=== PATIENT | female | born 1975 | race Caucasian/White ===

== ENCOUNTER 2017-06-04 11:38 | Emergency (ER) | payer MEDICAID ==
[2017-06-04 11:53] VITALS: BMI 30.9
[2017-06-04 11:54] VITALS: BP 107/73; PULSE 90; RESP 18; TEMP 98.2; O2SAT 99
[2017-06-04] MEDS ORDERED: Lidocaine 5% Patch TD STA (12:01)
[2017-06-04] MEDS ORDERED: Lidocaine 5% Patch TD ONE (12:06)
--- NOTE | 2017-06-04 12:18 | C.PDOC ---
History Of Present Illness 41 y/o female with Hx of asthma and anemia presents to ED with complaints of right lower back pain radiating to buttock and knee since thursday night. Pain is rated 6/10. Patient also complaints of sun rash to chest, shoulder and back. Patient reports [place] the [place] and rashes began that day and have no went away, she has tried to washing with aloe soap and using aloe lotion with no improvement. Patient denies trauma, fever, chills and has not taking medications for back pain. No other complaints at this time. Time Seen by Provider: 06/04/17 11:57 Chief Complaint (Nursing): Allergic Reaction History Per: Patient History/Exam Limitations: no limitations Onset/Duration Of Symptoms: Days Current Symptoms Are (Timing): Still Present Associated Symptoms: Skin Rash, Redness Past Medical History Reviewed: Historical Data, Nursing Documentation, Vital Signs Vital Signs: Last Vital Signs Temp 98.2 F 06/04/17 11:54 Pulse 90 06/04/17 11:54 Resp 18 06/04/17 11:54 BP 107/73 06/04/17 11:54 Pulse Ox 99 06/04/17 12:21 - Medical History PMH: Anemia (Blood transfusions in the past), Anxiety, Asthma, Bipolar Disorder , Depression, Gastrointestinal Ulcer Surgical History: Cholecystectomy Family History: States: Unknown Family Hx - Social History Hx Tobacco Use: No Hx Alcohol Use: No Hx Substance Use: No - Immunization History Hx Tetanus Toxoid Vaccination: Yes Hx Influenza Vaccination: No Hx Pneumococcal Vaccination: No Review Of Systems Except As Marked, All Systems Reviewed And Found Negative. Constitutional: Negative for: Fever, Chills Respiratory: Negative for: Shortness of Breath Gastrointestinal: Negative for: Nausea, Vomiting, Diarrhea Musculoskeletal: Positive for: Back Pain Skin: Positive for: Rash Physical Exam - Physical Exam Appears: Non-toxic, No Acute Distress Skin: Rash (Chest, shoulder and back) Head: Atraumatic, Normacephalic Lips: Lesions (Herpes lesion on lower lip) Back: Other (Tenderness to right buttocks) Extremity: Normal ROM, Capillary Refill (<2 seconds) Neurological/Psych: Oriented x3 ED Course And Treatment O2 Sat by Pulse Oximetry: 99 (RA) Pulse Ox Interpretation: Normal Disposition Counseled Patient/Family Regarding: Diagnosis, Need For Followup, Rx Given - Disposition Referrals: Nereyda Major MD [Non-Staff] - Disposition: HOME/ ROUTINE Disposition Time: 12:51 Condition: STABLE Prescriptions: Cyclobenzaprine [Cyclobenzaprine HCl] 10 mg PO TID #12 tab Lidocaine 5% [Lidoderm] 1 ea TD DAILY #2 patch Instructions: Sciatica (ED) Forms: General Discharge Instructions - POA Present On Arrival: None - Clinical Impression Clinical Impression: Sciatica - Scribe Statement The provider has reviewed the documentation as recorded by the Rhea Rubio All medical record entries made by the Rhea were at my direction and personally dictated by me. I have reviewed the chart and agree that the record accurately reflects my personal performance of the history, physical exam, medical decision making, and the department course for this patient. I have also personally directed, reviewed, and agree with the discharge instructions and disposition.
== END 2017-06-04 12:59 | disposition home or self-care (01) ==
LOC: C.ER 11:38
DX: M54.41 Lumbago with sciatica, right side (principal); R21 Rash and other nonspecific skin eruption

== ENCOUNTER 2018-01-29 08:18 | Emergency (ER) | payer MEDICAID ==
[2018-01-29 08:20] VITALS: BMI 30.9
[2018-01-29 08:26] VITALS: BP 116/79; PULSE 68; RESP 18; TEMP 98; O2SAT 96
--- NOTE | 2018-01-29 09:48 | C.PDOC ---
History Of Present Illness 42 year old female presents to the ER complaining of 1 month history of right anterior shoulder pain. No trauma or fall. States she is not taking Motrin because it bothers her stomach. Denies any numbness, tingling, or focal weakness. Time Seen by Provider: 01/29/18 08:48 Chief Complaint (Nursing): Upper Extremity Problem/Injury History Per: Patient History/Exam Limitations: no limitations Onset/Duration Of Symptoms: Days (x 1 month) Current Symptoms Are (Timing): Still Present Past Medical History Reviewed: Historical Data, Nursing Documentation, Vital Signs Vital Signs: Last Vital Signs Temp 98 F 01/29/18 08:24 Pulse 68 01/29/18 08:24 Resp 18 01/29/18 08:24 BP 116/79 01/29/18 08:24 Pulse Ox 96 01/29/18 19:32 - Medical History PMH: Anemia, Anxiety, Asthma, Bipolar Disorder, Depression, Gastritis, Gastrointestinal Ulcer Surgical History: Cholecystectomy Family History: States: Unknown Family Hx - Social History Hx Tobacco Use: No Hx Alcohol Use: No Hx Substance Use: No - Immunization History Hx Tetanus Toxoid Vaccination: Yes Hx Influenza Vaccination: No Hx Pneumococcal Vaccination: No Review Of Systems Musculoskeletal: Positive for: Shoulder Pain (right) Neurological: Negative for: Weakness, Numbness (and tingling) Physical Exam - Physical Exam Appears: Non-toxic, No Acute Distress Skin: Warm, Dry Eye(s): bilateral: PERRL Neck: No Midline Cervical Tenderness Chest: Symmetrical, No Deformity, No Tenderness Respiratory: No Decreased Breath Sounds Back: Normal Inspection, No Vertebral Tenderness Extremity: Normal ROM, Tenderness (Bicipital tendon is tender at right shoulder , no swelling or redness), No Deformity, Other (tedner to right bicepital tendon dec rom at shoulder right due to pain. no erythema, swelling or warmth. ) Pulses: Left Radial: Normal, Right Radial: Normal Neurological/Psych: Oriented x3, Normal Speech, Normal Motor, Normal Sensation ED Course And Treatment O2 Sat by Pulse Oximetry: 96 (RA) Pulse Ox Interpretation: Normal Medical Decision Making Medical Decision Making: Time: 9:15 Initial Plan: * Tylenol 975 mg PO Pt is medically stable. Instructed to continue Tylenol as needed for pain. Advised to follow up with ortho for further evaluation. Disposition Counseled Patient/Family Regarding: Diagnosis, Need For Followup, Rx Given - Disposition Referrals: Nereyda Major MD [Non-Staff] - Stanislaw Duran MD [Staff Provider] - Disposition: HOME/ ROUTINE Disposition Time: 09:45 Condition: GOOD Additional Instructions: Cold compresses to shoulder several times a day. Take Tylenol for pain. Follow up with PMD, recommend orthopedics and physical therapy. Prescriptions: Acetaminophen [Tylenol 325mg tab] 650 mg PO Q4 #50 tab Instructions: Biceps Tendinopathy Forms: [employer] ([place]an), General Discharge Instructions - Clinical Impression Clinical Impression: Shoulder pain - PA / GROUP EXERCISE MANAGER / Resident Statement MD/DO has reviewed & agrees with the documentation as recorded. - Scribe Statement The provider has reviewed the documentation as recorded by the Scribe (Ana Cleaning) All medical record entries made by the Scribe were at my direction and personally dictated by me. I have reviewed the chart and agree that the record accurately reflects my personal performance of the history, physical exam, medical decision making, and the department course for this patient. I have also personally directed, reviewed, and agree with the discharge instructions and disposition.
== END 2018-01-29 09:58 | disposition home or self-care (01) ==
LOC: C.ER 08:18
DX: M25.511 Pain in right shoulder (principal)